=== PATIENT | male | born 1945 | race Caucasian/White ===

== ENCOUNTER 2020-10-23 13:09 | Observation (INO) ==
[2020-10-23] MEDS ORDERED: Isovue-370 500 ML BOTTLE IVP ONE (15:16)
[2020-10-23 16:01] LABS: Basophils % 0.1 %; Hematocrit 27.7 % (37.5-50.1); Hemoglobin 8.9 g/dL (12.9-16.9); Immature Granulocytes % 0.3 % (0-4); Lymphocytes # 0.6 K/mcL (0.6-4.6); Lymphocytes % 7.2 %; Mean Corpuscular HGB Conc 32.1 g/dL (31.6-35.5); Mean Corpuscular Hemoglobin 30.5 pg (28.0-33.3); Mean Corpuscular Volume 94.9 fL (83.0-100.0); Mean Platelet Volume 10.6 fL (9.4-12.4); Monocytes # 0.4 K/mcL (0.0-1.3); Monocytes % 4.9 %; Neutrophils # 6.8 K/mcL (1.6-8.9); Platelet Count 140 K/mcL (140-400); Red Blood Count 2.92 M/mcL (4.19-5.50); Red Cell Distribution Width 13.3 % (11.5-14.5); Segmented Neutrophils % 87.5 %; White Blood Count 7.8 K/mcL (4.3-11.1)
[2020-10-23 16:16] LABS: Bilirubin,Urine Negative (Negative); Blood,Urine Moderate (Negative); Clarity,Urine Turbid (Clear); Color,Urine Red (Yellow); Glucose,Urine (UA) 50 mg/dL (Normal); Ketones,Urine Negative (Negative); Leukocyte Esterase,Urine Negative (Negative); Nitrite,Urine Negative (Negative); Protein,Urine >=600 mg/dL (Neg-Trace); Specific Gravity,Urine 1.028 (1.010-1.025); Urobilinogen,Urine Normal (Normal)
[2020-10-23 16:19] LABS: Calcium 9.2 mg/dL (8.6-10.3); Potassium 4.2 mEq/L (3.5-5.1)
[2020-10-23] MEDS ORDERED: Morphine Sulfate 2 MG/ML SYRINGE IVP ONE (17:34)
[2020-10-23] MEDS ORDERED: Ondansetron ODT 4 MG TAB.RAPDIS SL PRN (17:43)
[2020-10-23] MEDS ORDERED: Acetaminophen 325 MG TABLET PO PRN (17:43)
[2020-10-23] MEDS ORDERED: Ringers Solution, Lactated 1,000 ML IVC ONE (17:46)
[2020-10-23] MEDS ORDERED: *HR* Dextrose 50 % in Water (Vial) 50 ML VIAL IVP PRN (17:57)
[2020-10-23] MEDS ORDERED: Dextrose Gel 15 GM/37.5 ML TUBE PO PRN ×2 (17:57)
[2020-10-23] MEDS ORDERED: D5% in Water 1,000 ML IVC PRN (17:57)
[2020-10-23] MEDS ORDERED: *HR* OxyCODONE Immed Rel 5 MG TABLET PO PRN (18:01)
[2020-10-23 18:10] LABS: Prothrombin Time 11.2 Seconds (9.4-12.1)
[2020-10-23] MEDS: Insulin LISPRO 300 UNITS/3 ML VIAL SUBQ SCH (21:00)
[2020-10-23 22:55] LABS: Hematocrit 28.6 % (37.5-50.1); Hemoglobin 9.3 g/dL (12.9-16.9); Mean Corpuscular HGB Conc 32.5 g/dL (31.6-35.5); Mean Corpuscular Hemoglobin 30.7 pg (28.0-33.3); Mean Corpuscular Volume 94.4 fL (83.0-100.0); Mean Platelet Volume 10.2 fL (9.4-12.4); Platelet Count 137 K/mcL (140-400); Red Blood Count 3.03 M/mcL (4.19-5.50); Red Cell Distribution Width 13.3 % (11.5-14.5); White Blood Count 6.5 K/mcL (4.3-11.1)
[2020-10-24 02:11] LABS: Hematocrit 28.8 % (37.5-50.1); Hemoglobin 9.4 g/dL (12.9-16.9); Mean Corpuscular HGB Conc 32.6 g/dL (31.6-35.5); Mean Corpuscular Hemoglobin 30.6 pg (28.0-33.3); Mean Corpuscular Volume 93.8 fL (83.0-100.0); Red Blood Count 3.07 M/mcL (4.19-5.50); Red Cell Distribution Width 13.3 % (11.5-14.5); White Blood Count 6.2 K/mcL (4.3-11.1)
[2020-10-24 02:27] LABS: Calcium 8.7 mg/dL (8.6-10.3); Potassium 3.9 mEq/L (3.5-5.1)
[2020-10-24] MEDS: Insulin LISPRO 300 UNITS/3 ML VIAL SUBQ SCH ×4 (07:45→20:47)
[2020-10-24] MEDS: amLODIPine 5 MG TABLET PO SCH (12:42)
[2020-10-24] MEDS: Isosorbide MONOnitrate (24 HR) 60 MG TAB.ER.24H PO SCH (12:42)
[2020-10-24] MEDS: lisinopriL 20 MG TABLET PO SCH (12:42)
[2020-10-24] MEDS ORDERED: hydrALAZINE 25 MG TABLET PO SCH (20:23)
[2020-10-25] MEDS: amLODIPine 5 MG TABLET PO SCH (07:08)
[2020-10-25] MEDS: lisinopriL 20 MG TABLET PO SCH (07:09)
[2020-10-25] MEDS: Isosorbide MONOnitrate (24 HR) 60 MG TAB.ER.24H PO SCH (07:09)
[2020-10-25 07:11] LABS: Mean Platelet Volume 10.7 fL (9.4-12.4)
[2020-10-25 07:14] LABS: Basophils % 0.4 %; Eosinophils # 0.1 K/mcL (0.0-0.6); Hematocrit 27.9 % (37.5-50.1); Hemoglobin 8.8 g/dL (12.9-16.9); Immature Platelets 5.1 % (1.1-6.1); Lymphocytes # 1.3 K/mcL (0.6-4.6); Lymphocytes % 27.8 %; Mean Corpuscular HGB Conc 31.5 g/dL (31.6-35.5); Mean Corpuscular Hemoglobin 29.5 pg (28.0-33.3); Mean Corpuscular Volume 93.6 fL (83.0-100.0); Monocytes # 0.5 K/mcL (0.0-1.3); Monocytes % 9.5 %; Neutrophils # 2.8 K/mcL (1.6-8.9); Platelet Count 131 K/mcL (140-400); Red Blood Count 2.98 M/mcL (4.19-5.50); Red Cell Distribution Width 13.3 % (11.5-14.5); Segmented Neutrophils % 59.3 %; White Blood Count 4.7 K/mcL (4.3-11.1)
[2020-10-25 07:34] LABS: Calcium 8.7 mg/dL (8.6-10.3); Potassium 3.9 mEq/L (3.5-5.1)
[2020-10-25] MEDS: Insulin LISPRO 300 UNITS/3 ML VIAL SUBQ SCH ×2 (08:56→12:19)
[2020-10-25] MEDS ORDERED: Isosorbide MONOnitrate (24 HR) 60 MG TAB.ER.24H PO SCH (09:00)
[2020-10-25] MEDS ORDERED: NON-FORMULARY MEDICATION 1 EACH EACH (Amlodipine Besylate 10 MG) PO SCH (09:00)
[2020-10-25] MEDS ORDERED: BISOPROLOL FUMARATE 5 MG PO SCH (09:00)
[2020-10-25] MEDS ORDERED: Aspirin Enteric Coated 81 MG Tablet PO SCH (09:00)
[2020-10-25 09:11] VITALS: BP 104/52
== END 2020-10-25 13:31 | disposition home or self-care (01) ==
LOC: EMEROOARM 13:09 → 3ANU 13:09
PROVIDERS: ADMIT Internal Medicine; ATTEND Internal Medicine